=== PATIENT | female | born 1945 | race Caucasian/White ===

== ENCOUNTER → 2023-11-16 17:35 | Outpatient (REF) | payer OTHER, SELFPAY | LOC: MRI 3T 17:35 | PROVIDERS: ATTENDING PHYSICIAN Ophthalmology; FAMILY PHYSICIAN Family Medicine | DX: H53.132 Sudden visual loss, left eye (principal) | CPT/HCPCS: 70553; A9575 ==

== ENCOUNTER → 2023-11-29 15:45 | Outpatient (REF) | payer OTHER, SELFPAY | LOC: HWRAD 15:45 | PROVIDERS: ATTENDING PHYSICIAN Nurse Practitioner Family; FAMILY PHYSICIAN Family Medicine | DX: J40 Bronchitis, not specified as acute or chronic (principal) | CPT/HCPCS: 71046 ==

== ENCOUNTER 2024-01-08 13:13 | Emergency (ER) | payer OTHER, SELFPAY ==
[2024-01-08 13:18] VITALS: BP 160/81
--- NOTE | 2024-01-08 13:48 | ED.GENMED ---
History of Present Illness
General
Chief Complaint: Head Injury
Source: patient
Exam Limitations: none
Time Seen by Provider: 01/08/24 13:41
Travel History
Have you had any contact with someone who has COVID-19?: No
Do you have any symptoms of coronavirus? Fever > 100 degrees, chills, cough, shortness of breath, sore throat, loss of taste or smell, muscle aches, or headache?: No
History of Present Illness
History of Present Illness:
78-year-old female on Eliquis for A-fib presents for evaluation of head injury. She dropped a case of water onto a metal hand truck and the weight of the water made the handle of the hand truck sling forward and hit her on the top of the head. No
loss of conscious. She notes a headache. She denies any vision change or neck pain. This happened about 3 hours prior to my exam. No vomiting. No arm or leg pain. No other complaints at this time
Past History
Past History
ED Past Medical History: Arrthythmia (Atrial fib), Asthma, Fibromyalgia, HTN, Hypercholesterolemia and Other ( anemia, diverticulosis, polyps, Sacha Johnnie Syndrome, PNA, Glaumcoma, )
ED Past Surgical History: Appendectomy, Bowel resection (for diverticulitis, Colostomy with reversal. ), Cholecystectomy and Gynecological (tubal with pelvis cling)
Social History
Tobacco: Non-smoker
Alcohol: None
Personal:
Living: with family
Employment: Employed
Family History
Family History: Cancer (colon CA) and Other (colitis)
Phy Exam
Physical Exam
Physical Exam:
General: Well-appearing female no acute respiratory distress
HEENT: Normocephalic pupils equal round reactive to light no scalp abrasion hematoma no Park sign or raccoon eyes
Musculoskeletal exam: Cervical spine is nontender
Neurologic: Alert and oriented x 3 no facial asymmetry or slurred speech conversing appropriately normal gait
Course
Orders/Labs/Results
Orders:
Orders
01/08/24 13:47
CT Head W/o Iv Contrast Urgent
Comment:
Reason For Exam: head injury
Vital Signs
Initial and Last Documented VS:
Initial Vital Signs
Temp Pulse Resp BP Pulse Ox
97.4 F 56 16 160/81 98
01/08/24 13:18 01/08/24 13:18 01/08/24 13:18 01/08/24 13:18 01/08/24 13:18
Last Documented Vital Signs
Temp Pulse Resp BP Pulse Ox
97.4 F 56 16 160/81 98
01/08/24 13:18 01/08/24 13:18 01/08/24 13:18 01/08/24 13:18 01/08/24 13:18
MDM/Problems Addressed
Differential Diagnosis Includes:
Head injury closed acute. Patient is on Eliquis for A-fib. She has a moderate headache. Consider contusion versus fracture intracranial hemorrhage. Will check CT of head.
*Critical Care Note
Total Time (30-74mins, 75-104mins- exclusive of procedures): Not Applicable
Update Note
Update Note:
CT of the head negative for acute finding. Patient reassured. Suspect contusion possible underlying concussion. Recommend rest and Tylenol for discomfort. Stable for discharge home
ED Attending Note
-
Portions of this chart may have been created with voice recognition software.� Occasional wrong word or��sound alike� substitutions may have occurred due to the inherent limitations of voice recognition software.
Discharge Plan
Departure
Patient Disposition: Home (Routine Discharge)
Date of Disposition: 01/08/24
Time of Disposition: 14:19
Patient with high blood pressure during this ER visit?: No
Discharge Problem:
Contusion
Instructions: Concussion, Adult (DC), Contusion (DC)
Prescriptions:
No Action
diltiazem HCl 180 MG capsule,extended release 24hr
180 mg PO DAILY
metoprolol succinate [Toprol XL] 25 MG tablet extended release 24 hr
25 mg PO HS
montelukast 10 MG tablet
10 mg PO HS
acetaminophen 325 MG tablet
650 mg PO Q4HPRN PRN (Reason: mild pain/ fever>100.5F) 0RF
budesonide 0.25 MG/2 ML suspension for nebulization
2 puff IH DAILY
cholecalciferol (vitamin D3) [Vitamin D3] 400 UNITS tablet
3,000 mcg PO DAILY
calcium 600 mg Capsule
1,200 mg PO HS
propranolol 20 mg tablet
20 mg PO .q6prn Qty: 30 0RF
Rx Instructions:
As needed for palpitations
Eliquis 5 mg Tablet
5 mg PO BID 30 Days Qty: 60 1RF
Stand Alone Forms: Return to Work
Activity Restrictions/Additional Instructions:
Rest. Avoid excessive physical or cognitive activity. Return here for worsening symptoms. You can use Tylenol for pain. Follow-up with family doctor otherwise
Interventions
Interventions:
*ED COVID-19 Vaccine History Last Done: 01/08/24 13:18
== END 2024-01-08 14:34 | disposition home or self-care (01) ==
LOC: EMR 13:13
PROVIDERS: EMERGENCY PHYSICIAN Emergency Medicine; FAMILY PHYSICIAN Family Medicine
DX: S00.83XA Contusion of other part of head, initial encounter (principal); W22.8XXA Striking against or struck by other objects, initial encounter
CPT/HCPCS: 99284; 70450

== ENCOUNTER → 2024-04-09 15:38 | Outpatient (REF) | payer OTHER, SELFPAY | LOC: HWWDC 15:38 | PROVIDERS: ATTENDING PHYSICIAN Family Medicine | DX: Z12.31 Encounter for screening mammogram for malignant neoplasm of breast (principal) | CPT/HCPCS: 77063; 77067 ==

== ENCOUNTER → 2024-05-22 11:05 | Outpatient (REF) | payer OTHER, SELFPAY ==
[2024-05-22 12:44] LABS: % Basophils 0.5 % (0-2); % Immature Granulocytes 0.3 % (0-0.5); % Lymphocytes 26.2 % (20.5-51.1); % Monocytes 8.1 % (1.7-9.3); % Neutrophils 62.9 % (42.2-75.2); Absolute Eosinophils 0.1 10^3/uL (0-0.7); Absolute Lymphocytes 1.6 10^3/uL (1.2-3.4); Absolute Monocytes 0.5 10^3/uL (0.1-0.6); Absolute Neutrophils 3.8 10^3/uL (1.4-6.5); Hematocrit 43.7 % (37.0-47.0); Mean Corp Hgb Conc. 34.3 g/dL (33.0-37.0); Mean Corpuscular Hgb 30.6 pg (27.0-31.0); Mean Corpuscular Volume 89.2 fL (81.0-99.0); Mean Platelet Volume 9.1 fL (7.4-10.4); Nucleated Red Blood Cells % 0 %; Platelet Count 215 10^3/uL (130-400); Red Cell Dist. Width 12.9 % (11.5-14.5)
[2024-05-22 13:08] LABS: Erythrocyte Sed Rate 8 mm/hour (0-20)
[2024-05-22 14:06] LABS: ALT (SGPT) 41 U/L (0-35); AST (SGOT) 33 U/L (14-36); Albumin 4.3 g/dl (3.5-5.0); Alkaline Phosphatase 69 U/L (38-126); Blood Urea Nitrogen 38 mg/dl (7-17); Calcium 9.9 mg/dl (8.4-10.2); Carbon Dioxide 26 mmol/L (22-30); Chloride 101 mmol/L (98-107); Glucose 85 mg/dl (70-99); Potassium 4.6 mmol/L (3.5-5.1); Sodium 137 mmol/L (135-145); Total Bilirubin 0.6 mg/dl (0.2-1.3); Total Protein 6.5 g/dl (6.3-8.2); eGFR 57.66
[2024-05-22 14:08] LABS: C-Reactive Protein < 5.00 mg/L (0.0-10.00)
== END ==
LOC: REG 11:05
PROVIDERS: ATTENDING PHYSICIAN Hospitalist; FAMILY PHYSICIAN Family Medicine
DX: M25.50 Pain in unspecified joint (principal); M81.0 Age-related osteoporosis without current pathological fracture
CPT/HCPCS: 36415; 80053; 85025; 85652; 86140

== ENCOUNTER → 2024-12-10 08:35 | Outpatient (REF) | payer OTHER, SELFPAY | LOC: HWRAD 08:35 | PROVIDERS: ATTENDING PHYSICIAN Nurse Practitioner Family | DX: R10.12 Left upper quadrant pain (principal) | CPT/HCPCS: 76700 ==

== ENCOUNTER → 2025-04-29 09:26 | Outpatient (REF) | payer OTHER, SELFPAY ==
[2025-04-29 10:40] LABS: Hematocrit 46.3 % (37.0-47.0); Hemoglobin 15.5 g/dL (12.0-16.0); Mean Corp Hgb Conc. 33.5 g/dL (33.0-37.0); Mean Corpuscular Volume 92.0 fL (81.0-99.0); Nucleated Red Blood Cells % 0 %; Platelet Count 207 10^3/uL (130-400); Red Cell Dist. Width 13.0 % (11.5-14.5)
[2025-04-29 11:37] LABS: ALT (SGPT) 27 U/L (0-35); AST (SGOT) 27 U/L (14-36); Albumin 4.4 g/dl (3.5-5.0); Alkaline Phosphatase 58 U/L (38-126); Blood Urea Nitrogen 27 mg/dl (7-17); Calcium 9.7 mg/dl (8.4-10.2); Carbon Dioxide 25 mmol/L (22-30); Chloride 108 mmol/L (98-107); Glucose 94 mg/dl (70-99); HDL Cholesterol 68 mg/dl; LDL Cholesterol, Calculated 97 mg/dl; Potassium 4.6 mmol/L (3.5-5.1); Sodium 138 mmol/L (135-145); Total Protein 6.8 g/dl (6.3-8.2); Very Low Density Lipoprotein 20 mg/dl (0-30); eGFR > 60.00
== END ==
LOC: REG 09:26
PROVIDERS: ATTENDING PHYSICIAN Student in an Organized Health Care Education/Training Program; FAMILY PHYSICIAN Family Medicine
DX: I48.0 Paroxysmal atrial fibrillation (principal)
CPT/HCPCS: 36415; 80053; 80061; 85025

== ENCOUNTER → 2025-07-10 11:25 | Outpatient (REF) | payer OTHER, SELFPAY | LOC: CLAB 11:25 | PROVIDERS: ATTENDING PHYSICIAN Surgery | DX: L72.9 Follicular cyst of the skin and subcutaneous tissue, unspecified (principal) | CPT/HCPCS: 88304 ==

== ENCOUNTER → 2025-07-24 11:19 | Outpatient (REF) | payer OTHER, SELFPAY | LOC: HWRAD 11:19 | PROVIDERS: ATTENDING PHYSICIAN Physician Assistant Medical; FAMILY PHYSICIAN Family Medicine | DX: M54.2 Cervicalgia (principal) | CPT/HCPCS: 72052 ==

== ENCOUNTER → 2025-08-07 10:01 | Outpatient (REF) | payer OTHER, SELFPAY | LOC: HWWDC 10:01 | PROVIDERS: ATTENDING PHYSICIAN Family Medicine | DX: M81.0 Age-related osteoporosis without current pathological fracture (principal); Z12.31 Encounter for screening mammogram for malignant neoplasm of breast | CPT/HCPCS: 77063; 77067; 77080 ==